=== PATIENT | female | born 1970 | race Caucasian/White ===

== ENCOUNTER → 2019-08-03 | Outpatient (CLI) | payer OTHER ==
--- NOTE | 2019-08-05 11:26 | SLEEPHOME ---
DATE OF PROCEDURE: 08/03/2019 ORDERED BY: Dr. Handy Diagnostic home sleep testing was performed due to concern for the obstructive sleep apnea syndrome in this patient with a history of somnolence. For testing, a nocturnal T3 respiratory monitoring device was used. Continuous record was made of pulse, oxygen saturation, airflow, chest and abdominal strain and body position. 9 hours and 59 minutes of data were reviewed. There are 5 hours of 8 minutes marked as time in bed. During the interval marked time in bed, there were only 16 respiratory events identified of 10 seconds in duration or greater for respiratory event index of 3.1. The events were of various descriptions and more frequently seen in the supine posture. Snoring was noted during the study. Baseline pulse rate 55, pulse rate ranged 48-84. Baseline saturation 94%. Lowest oxygen saturation 91%. IMPRESSION: Normal diagnostic home sleep test with minimal respiratory variability in the supine position.
== END ==
LOC: M SLEEP HO 13:40
PROVIDERS: ATTEND Internal Medicine Cardiovascular Disease
DX: R40.0 Somnolence (principal)

== ENCOUNTER → 2020-11-24 | Outpatient (CLI) | payer OTHER ==
[2020-11-24 18:03] LABS: APPEARANCE, URINE CLEAR (CLEAR); BACTERIA, URINE AUTO NEGATIVE (NEGATIVE); BILIRUBIN, URINE AUTO NEGATIVE (NEGATIVE); BLOOD, URINE BLOOD 2+ (NEGATIVE); COLOR, URINE STRAW (YELLOW); GLUCOSE, URINE (UA) AUTO NEGATIVE (NEGATIVE); KETONE, URINE AUTO NEGATIVE (NEGATIVE); LEUKOCYTE ESTERASE, URINE AUTO NEGATIVE (NEGATIVE); NITRITE, URINE AUTO NEGATIVE (NEGATIVE); PROTEIN, URINE AUTO NEGATIVE (NEGATIVE); RBC, URINE AUTO 1 /HPF (0-3); SPECIFIC GRAVITY URINE AUTO 1.006 (1.002-1.035); SQUAMOUS EPITHELIAL CELL UR AU 0 /HPF (0-6); UROBILINOGEN, URINE AUTO 0.2 mg/dL (0.0-2.0); WBC, URINE AUTO 2 /HPF (0-3)
[2020-11-24 18:39] LABS: BLOOD UREA NITROGEN 16 MG/DL (7-18); CALCIUM LEVEL 9.3 MG/DL (8.5-10.1); CARBON DIOXIDE LEVEL 29 MEQ/L (21-32); CHLORIDE LEVEL 106 MEQ/L (98-107); CREATININE FOR GFR 0.85 MG/DL (0.55-1.30); GLOMERULAR FILTRATION RATE > 60.0 (>51); GLUCOSE, FASTING 104 MG/DL (70-100); POTASSIUM SERUM 3.8 MEQ/L (3.5-5.1); SODIUM LEVEL 141 MEQ/L (136-145)
== END ==
LOC: M LAB 15:39
PROVIDERS: ATTEND Nurse Practitioner Women's Health
DX: R31.29 Other microscopic hematuria (principal)

== ENCOUNTER → 2020-12-03 | Outpatient (CLI) | payer OTHER ==
[~2020-12-03] MED LIST: ISOVUE-370 76% 100ML VIAL As Ordered ONE
--- NOTE | 2020-12-03 09:21 | REP ---
INDICATION: MICROSCOPIC HEMATURIA. COMPARISON: None. TECHNIQUE: Standard helical technique before and after the intravenous administration of [address] urogram with MIP reformatted 3D images as well FINDINGS: The lung bases are clear. The pre contrast enhanced portion of the examination shows possible mild fatty infiltration of the liver. There is no nephroureterolithiasis, hydronephrosis, or hydroureter. There are no urinary bladder calcifications. There is a left simba pelvic phleboliths. The contrast-enhanced portion examination shows surgical clips in the gallbladder fossa from previous cholecystectomy. The liver, spleen, pancreas, adrenal glands, and kidneys are within normal limits. The abdominal aorta and para-aortic regions are within normal limits. There is no mass or adenopathy. There is no free fluid or free air. Limited evaluation of the bowel loops show no abnormalities. The mesenteries are within normal limits. 3D MIP reformatted urogram shows complete opacification of the renal collecting system bilaterally without evidence of an abnormality. Delayed imaging through the pelvis shows partial contrast opacification of the urinary bladder and without evidence of an abnormality. IMPRESSION: CT findings are within normal limits as described above. <Electronically signed by Michael Brandt > 12/03/20 [id number]
== END ==
LOC: M RAD 07:13
PROVIDERS: ATTEND Nurse Practitioner Women's Health
DX: R31.9 Hematuria, unspecified (principal)